=== PATIENT | female | born 1940 | race Caucasian/White ===

== ENCOUNTER 2020-01-16 09:59 | Emergency (ER) | payer MEDICARE ==
--- NOTE | 2020-01-16 10:35 | EDM.PDOC ---
ED HPI GENERAL MEDICAL PROBLEM - General Stated Complaint: PAIN IN RIGHT LOWER BACK Time Seen by Provider: 01/16/20 10:32 Source of Information: Reports: Patient History Limitations: Reports: No Limitations - History of Present Illness INITIAL COMMENTS - FREE TEXT/NARRATIVE: pt c/o right flank pain that woke her from sleep at 6:30 am, its steady dull non radiating pain, no urianry sx , pt report feeling chills at night but no fever, denies Hx of similar problems or any other associated sx or medical concerns. Right Lower Back Pain Score (Numeric/FACES): 8 - Related Data Allergies Allergy/AdvReac Type Severity Reaction Status Date / Time corn Allergy Diarrhea Verified 01/16/20 10:12 gluten Allergy Diarrhea Verified 01/16/20 10:12 latex Allergy Rash Verified 01/16/20 10:12 Penicillins Allergy Rash Verified 01/16/20 10:12 Sulfa (Sulfonamide Allergy Hives Verified 01/16/20 10:12 Antibiotics) Home Meds: Home Meds FLUoxetine HCl [Prozac] 60 mg PO DAILY 01/16/20 [History] Losartan/Hydrochlorothiazide [Losartan-HCTZ 100-25 MG] 1 tab PO DAILY 01/16/20 [History] amLODIPine [Norvasc] 2.5 mg PO BEDTIME 01/16/20 [History] predniSONE [Prednisone] 5 mg PO DAILY 01/16/20 [History] ED ROS GENERAL - Review of Systems Review Of Systems: See Below Constitutional: Reports: No Symptoms Respiratory: Reports: No Symptoms Cardiovascular: Reports: No Symptoms GI/Abdominal: Reports: No Symptoms : Reports: No Symptoms Musculoskeletal: Reports: Back Pain Skin: Reports: No Symptoms Neurological: Reports: No Symptoms ED EXAM, GENERAL - Physical Exam Exam: See Below Exam Limited By: No Limitations General Appearance: Alert, Anxious, Mild Distress Throat/Mouth: Normal Inspection Head: Atraumatic, Normocephalic Respiratory/Chest: No Respiratory Distress, Lungs Clear Cardiovascular: Normal Peripheral Pulses, Regular Rate, Rhythm GI/Abdominal: Normal Bowel Sounds, Soft, Non-Tender Back Exam: Full Range of Motion, CVA Tenderness (R) Extremities: Normal Inspection, Normal Range of Motion Neurological: Alert, CN II-XII Intact, No Motor/Sensory Deficits Course - Vital Signs Text/Narrative:: labs and questionable findings on CT results of pneumonia , abd density , thickening of bladder wall were explained to pt , pt is comfortable after 1 tablets hydrocodone , her paz pain seems muscular and there is no evidence of calculi on CT, she is afebrile here with stable vitals . i will prescribe Levaquin for presumed pneumonia noted on CT , and will have pt follow with PCP in 2 days on findings noted on her CT, either then for a follow up abd series or repeat CT but with contrast. - Orders/Labs/Meds Orders: Active Orders 24 hr Category Date Time Status Abdomen Pelvis wo Cont [CT] Stat Exams 01/16/20 12:57 Taken Labs: Laboratory Tests 01/16/20 01/16/20 01/16/20 Range/Units 10:40 10:50 10:50 WBC 7.2 (4.5-12.0) X10-3/uL RBC 4.06 (3.23-5.20) x10(6)uL Hgb 11.2 L (11.5-15.5) g/dL Hct 34.5 (30.0-51.3) % MCV 85.0 (80-96) fL MCH 27.5 L (27.7-33.6) pg MCHC 32.4 (32.2-35.4) g/dL RDW 15.4 (11.5-15.5) % Plt Count 209 (125-369) X10(3)uL MPV 8.2 (7.4-10.4) fL Neut % (Auto) 78.8 (46-82) % Lymph % (Auto) 11.0 L (13-37) % [place] % (Auto) 8.5 (4-12) % Eos % (Auto) 1 (1.0-5.0) % Baso % (Auto) 1 (0-2) % Neut # (Auto) 5.7 (1.6-8.3) # Lymph # (Auto) 0.8 (0.6-5.0) # [place] # (Auto) 0.6 (0.0-1.3) # Eos # (Auto) 0.1 (0.0-0.8) # Baso # (Auto) 0.0 (0.0-0.2) # Sodium 136 (135-145) mmol/L Potassium 3.8 (3.5-5.3) mmol/L Chloride 101 (100-110) mmol/L Carbon Dioxide 29 (21-32) mmol/L BUN 18 (7-18) mg/dL Creatinine 0.8 (0.55-1.02) mg/dL Est Cr Clr Drug Dosing TNP Estimated GFR (MDRD) > 60 (>60) BUN/Creatinine Ratio 22.5 H (9-20) Glucose 87 (80-116) mg/dL Calcium 8.8 (8.6-10.2) mg/dL Total Bilirubin 0.6 (0.1-1.3) mg/dL AST 90 H (5-25) IU/L ALT 61 H (12-36) U/L Alkaline Phosphatase 31 L (56-112) IU/L Total Protein 8.9 H (6.0-8.0) g/dL Albumin 2.6 L (3.2-4.6) g/dL Globulin 6.3 g/dL Albumin/Globulin Ratio 0.4 Urine Color Yellow (YELLOW) Urine Appearance Clear (CLEAR) Urine pH 7.0 H (5.0-6.5) Ur Specific [place] 1.010 (1.010-1.025) Urine Protein Negative (NEGATIVE) mg/dL Urine Glucose (UA) Normal (NORMAL) mg/dL Urine Ketones Negative (NEGATIVE) mg/dL Urine Occult Blood Negative (NEGATIVE) Urine Nitrite Negative (NEGATIVE) Urine Bilirubin Negative (NEGATIVE) Urine Urobilinogen Normal (NEGATIVE) mg/dL Ur Leukocyte Esterase Negative (NEGATIVE) Urine WBC 0-5 (0-5) Ur Squamous Epith Cells Few H (NS,R,O) Urine Bacteria Few H (NS) Meds: Medications Discontinued Medications Generic Name Dose Route Start Last Admin Trade Name Joo PRN Reason Stop Dose Admin Hydrocodone Bitart/Acetaminophen 1 tab 01/16/20 10:36 01/16/20 11:21 [place] 325-5 Mg PO 01/16/20 10:37 1 tab ONETIME ONE Administration Departure - Departure Time of Disposition: 14:24 Disposition: Home, Self-Care 01 Clinical Impression: Back pain - Discharge Information Referrals: PCP,None [Primary Care Provider] - - My Orders Last 24 Hours: My Active Orders 01/16/20 12:57 Abdomen Pelvis wo Cont [CT] Stat - Assessment/Plan Last 24 Hours: My Active Orders 01/16/20 12:57 Abdomen Pelvis wo Cont [CT] Stat
[2020-01-16] MEDS ORDERED: Acetaminophen/HYDROcodone 325-5 MG Tab PO ONE (10:36)
--- NOTE | 2020-01-16 14:53 | CT ---
INDICATION: Right flank pain. CT ABDOMEN AND PELVIS WITHOUT CONTRAST: Spiral 2.5 mm axial sections were obtained through the abdomen with sagittal and coronal reconstructions 01/16/20 - no comparisons. Total exam DLP was 435.29 mGy-cm. There are pleuroparenchymal changes at the right lower lobe at the lung base - diaphragm, which may be on the basis of pneumonia and pleuritis. Small abnormal air spaces are noted in that area suggesting emphysematous change. Very minimal density is seen at the left lung base at the lower lobe which may be due to atelectasis and/or fibrosis. The heart is enlarged with a small to moderate-sized pericardial effusion suggested, findings could be on the basis of pericarditis - correlated clinically. No definite liver abnormality was identified. No overt calculi are noted in the gallbladder - if cholelithiasis is suspected clinically, ultrasound of the gallbladder is strongly recommended for further evaluation - the gallbladder was not grossly enlarged - no definite pericholecystic fluid was seen. The adrenal glands are grossly normal. There is no evidence of obstructive uropathy or renal calcinosis. Scattered metallic density is noted in the small bowel and minimally in the colon. A moderate dextroconvex rotoscoliosis of the lumbar spine is noted with hypertrophic degenerative changes and disk disease at L3-4 and to a lesser extent L4-5 and L5-S1. Disk disease and hypertrophic changes were also noted at the lower thoracic spine included on the study. Calcifications are noted in the abdominal aorta without aneurysmic dilatation. Calcifications are also noted in the superior mesenteric artery, splenic artery, proximal renal arteries, iliac and femoral arteries. The uterus is absent compatible with hysterectomy, but should be correlated clinically as no history was given for surgery. Also, the appendix is not visualized raising question of appendectomy. This should also be correlated clinically. The urinary bladder wall appears markedly thickened partly on the basis of lack of distention. However, cystitis is strongly suggested with the somewhat indistinct appearance of the wall. No evidence of free air or definite bowel obstruction was identified. In the left flank seen on coronal image 53, axial image 81, and sagittal image #111, there is an irregular low-density finding in what appears to be a loop of proximal jejunum distending the lumen with an appearance of slightly thickened wall. The etiology is indeterminate. A mass with a necrotic center would be a consideration within the bowel. It may simply be incidental to a food bolus. Small bowel series may be helpful in this regard. A few of the jejunal loops in that area proximally also appear to have somewhat thickened wall raising question of a more generalized process. An inflammatory process of bowel would be a consideration. No retroperitoneal mass was identified. Retroperitoneal and mesenteric lymphadenopathy is noted which may be on the basis of inflammatory disease process and should be correlated clinically. No other evidence of a mass lesion, organomegaly, or free fluid collection was identified in the abdomen or pelvis. No significant ventral or inguinal hernia could be identified. Overall there appears to be a slightly increased density of the subcutaneous fat raising question of a mild degree of anasarca - correlate clinically. Diverticulosis sigmoid colon without definite evidence of diverticulitis. IMPRESSION: 1. Questionable finding in what appears to be proximal loops of jejunum with possibility of a low-density mass such as a necrotic centered tumor would be a consideration. Small bowel series may be warranted depending upon clinical correlation. Also, in proximal loops of jejunum there appears to be some thickening of the wall which may represent a more generalized inflammatory process. This should be correlated clinically. Mesenteric lymphadenitis and retroperitoneal lymphadenitis is also noted which may be related. 2. Thickening of the wall of the urinary bladder suggests the possibility of cystitis, but should be correlated clinically. 3. No evidence of obstructive uropathy or renal calcinosis. 4. No gross abnormality of the gallbladder - if cholelithiasis is suspected clinically - ultrasound of the gallbladder is recommended for further evaluation. 5. ASHD with cardiomegaly and pericardial effusion. 6. Parenchymal changes at the right lung base with pleural reaction raising question of pneumonia and pleuritis, although fibrosis could also be present. Very minimal similar finding is noted at the left lung base comparatively. 7. Uterus and appendix are not visualized - correlate clinically with possible history of surgery. 8. ASD. 9. Degenerative changes, disk disease and scoliosis thoracolumbosacral spine. 10. Metallic density in the bowel, question medication containing metallic components. 11. Overall there appears to be a slightly increased density of the subcutaneous fat raising question of a mild degree of anasarca - correlate clinically. 12. Diverticulosis sigmoid colon without definite evidence of diverticulitis. Report was called to Dr. Doty at 1250 hours. [facility]
== END 2020-01-16 14:34 | disposition home or self-care (01) ==
LOC: FB.ED 09:59
DX: M54.5 Low back pain (principal); Z91.018 Allergy to other foods; Z91.048 Other nonmedicinal substance allergy status; Z91.040 Latex allergy status; Z88.0 Allergy status to penicillin; Z88.2 Allergy status to sulfonamides; Z79.899 Other long term (current) drug therapy
CPT/HCPCS: 36415; 74176; 80053; 81001; 85025; 99284; A9270

== ENCOUNTER 2023-04-25 10:21 | Emergency (ER) | payer MEDICARE ==
[2023-04-25 10:45] LABS: BILIRUBIN,URINE NEGATIVE (NEGATIVE); GLUCOSE,URINE NORMAL (NORMAL); KETONES,URINE NEGATIVE (NEGATIVE); LEUKOCYTE ESTERASE,URINE LARGE (NEGATIVE); NITRITE,URINE POSITIVE (NEGATIVE); OCCULT BLOOD,URINE MODERATE (NEGATIVE); PH,URINE 6.5 (5.0-6.5); PROTEIN,URINE NEGATIVE (NEGATIVE); UROBILINOGEN,URINE NORMAL (NEGATIVE)
[2023-04-25 10:49] LABS: APPEARANCE,URINE CLOUDY (CLEAR); COLOR,URINE YELLOW (YELLOW); RBC,URINE 0-5 (0-5); SQUAMOUS EPITHELIAL CELLS,UR FEW (NS,R,O); WBC,URINE 40-50 (0-5)
[2023-04-25 10:50] LABS: BACTERIA,URINE MANY (NS)
== END 2023-04-25 11:39 | disposition home or self-care (01) ==
LOC: FB.ED 10:21
DX: N39.0 Urinary tract infection, site not specified (principal); I10 Essential (primary) hypertension; Z88.0 Allergy status to penicillin; Z88.2 Allergy status to sulfonamides; Z91.040 Latex allergy status; Z91.018 Allergy to other foods; Z79.899 Other long term (current) drug therapy
CPT/HCPCS: 81001; 87086; 87088; 87186; 99283